=== PATIENT | female | born 1955 | race Caucasian/White ===

== ENCOUNTER 2024-06-23 14:05 | Emergency (ER) | payer MEDICARE, SELFPAY ==
--- NOTE | 2024-06-23 14:07 | ED.SKABFB ---
HPI - Skin/Abscess/Foreign Bdy General Chief complaint: Skin/Abscess/Foreign Body Stated complaint: Rash Time Seen by Provider: 06/23/24 14:18 Source: patient, RN notes reviewed and old records reviewed Mode of arrival: ambulatory Limitations: no limitations History of Present Illness HPI narrative: 69-year-old female presents to [facility] with complaints of a rash to bilateral arms, chest. Had something similar 2 weeks ago after being in the [place]. States that this also. After she was in [place] over the weekend. Had taken Benadryl and hydrocortisone cream Patient describes it is bearing very itchy. No swelling. No lip or tongue swelling. No trouble breathing. Areas are no increased warmth. No signs of cellulitic changes. Related Data Home Medications Medication Instructions Recorded Confirmed simvastatin 40 mg tablet 40 mg PO DAILY 01/05/22 06/23/24 hydrochlorothiazide 12.5 mg capsule 12.5 mg PO DAILY 02/12/23 06/23/24 levothyroxine 25 mcg capsule 25 mcg PO DAILY 02/12/23 06/23/24 magnesium gluconate 27 mg 27 mg PO BID 02/18/24 06/23/24 magnesium (500 mg) tablet (Mag-G) phentermine 37.5 mg capsule 37.5 mg PO DAILY 02/18/24 06/23/24 Allergies Allergy/AdvReac Type Severity Reaction Status Date / Time epinephrine Allergy Mild FLUSHING Verified 02/18/24 09:15 Sulfa (Sulfonamide Allergy Mild HIVES Verified 02/18/24 09:15 Antibiotics) Review of Systems Review of Systems: All systems reviewed & are unremarkable except as noted in HPI and below Constitutional: Constitutional: Reports no additional constitutional complaints Eyes: Eyes: Reports no additional eye complaints ENT: Reports system reviewed and no additional complaints, except as documented Cardiovascular: Cardiovascular: Reports no additional cardiovascular complaints, Denies chest pain and Denies dyspnea Respiratory: Respiratory: Reports no additional respiratory complaints, Denies chest congestion, Denies cough and Denies dyspnea Gastrointestinal: Gastrointestinal: Reports no additional gastrointestinal complaints, Denies abdominal pain, Denies nausea and Denies vomiting Musculoskeletal: Musculoskeletal: Reports no additional musculoskeletal complaints Integumentary/Breasts: Skin/Breast: Reports as per HPI and Reports rash Neurologic: Reports system reviewed and no additional complaints, except as documented Psychiatric: Psychiatric: Reports no additional psychiatric complaints Allergic/Immunologic: Allergic/Immunologic: Reports no additional allergic/immunologic complaints [facility] Past Medical History Medical History Encounter for Papanicolaou smear for cervical cancer screening H/O bone density study (09/20/18) osteopenia High blood cholesterol Hypertension Joint pain Screening mammogram, encounter for Surgical History Surgical History H/O LEEP 11/27/18 benign History of endometrial ablation 02/15/05 hscope d&c, novasure ablation, tubal ligation History of gastrointestinal surgery 04/19/13 transanal tumor [id number] follow up treatment History of hysteroscopy 11/27/18 hscope d&c/polypectomy/LEEP--benign History of tonsillectomy History of tubal ligation 02/15/05 Family History Family History Father Heart disease Hypertension Lymphoma Mother Breast cancer Social History Social History Smoking status: Never smoker Second hand tobacco smoke exposure: No Alcohol intake: current Drinks per week: 5 Substance use: current Substance use type: marijuana Other substance usage details: gummies at night Do You Feel Safe in your Home?: Yes Lack of Transportation: No Lack of Food: Never True Current Housing: I Have Housing Concerned About Future Housing: No Difficulty Paying
[2024-06-23 14:18] VITALS: BP 131/82; PULSE 66; RESP 16; TEMP 36.8; O2SAT 99
== END 2024-06-23 14:44 | disposition home or self-care (01) ==
PROVIDERS: Emergency Provider Nurse Practitioner; PCP Family Medicine
DX: L25.9 Unspecified contact dermatitis, unspecified cause (principal); F12.90 Cannabis use, unspecified, uncomplicated; E78.00 Pure hypercholesterolemia, unspecified; I10 Essential (primary) hypertension
CPT/HCPCS: 99213; G0463

== ENCOUNTER 2025-04-01 14:54 | Emergency (ER) | payer MEDICARE, SELFPAY ==
[2025-04-01 15:20] VITALS: BP 158/80; PULSE 62; RESP 16; TEMP 36.4; O2SAT 100
--- NOTE | 2025-04-01 16:08 | ED_ITS ---
HPI - General Adult General Chief complaint: Allergic Reaction Stated complaint: allergic reaction Source: patient and RN notes reviewed Mode of arrival: ambulatory Limitations: no limitations History of Present Illness HPI narrative: 70-year-old female presents [facility] complaining of dry and irritated lips for last 2 weeks. Patient is unsure what caused her lips to become irritated. Patient states they feel more chapped and red than normal. Patient denies any lip swelling, tongue swelling, throat swelling. Denies any difficulty breathing. Patient also states the tip of her tongue is irritated as well. Patient denies eating anything that might have irritated her lips are mouth her anything too hot. Patient does take a daily antihistamine at night to help her sleep. Patient states she does feel like her eyes and throat feel more dry, and in “scratchy than normal lately. Patient denies change in in detergent, fragrance, any new medications. Patient does not take an ILENE-inhibitor. Related Data Home Medications Medication Instructions Recorded Confirmed Last Taken Type simvastatin 40 mg tablet 40 mg PO DAILY 01/05/22 06/23/24 Unknown History hydrochlorothiazide 12.5 mg capsule 12.5 mg PO DAILY 02/12/23 06/23/24 Unknown History levothyroxine 25 mcg capsule 25 mcg PO DAILY 02/12/23 06/23/24 Unknown History magnesium gluconate 27 mg 27 mg PO BID 02/18/24 06/23/24 Unknown History magnesium (500 mg) tablet (Mag-G) phentermine 37.5 mg capsule 37.5 mg PO DAILY 02/18/24 06/23/24 Unknown History Allergies Allergy/AdvReac Type Severity Reaction Status Date / Time epinephrine Allergy Mild FLUSHING Verified 04/01/25 15:36 Sulfa (Sulfonamide Allergy Mild HIVES Verified 04/01/25 15:36 Antibiotics) Review of Systems Review of Systems: CONSTITUTIONAL: Denies fever, chills, or sweats. EYES: Denies visual changes, redness, or discharge. ENT: Denies rhinorrhea, congestion, sore throat, or otalgia. Positive for dry lips and lip pain. MOUTH: Positive for tongue irritation CARDIOVASCULAR: Denies chest pain, palpitations, or edema. RESPIRATORY: Denies cough or dyspnea. GASTROINTESTINAL: Denies abdominal pain, nausea, vomiting, or diarrhea. GENITOURINARY: Denies dysuria or hematuria. SKIN: Denies rash or itching. MUSCULOSKELETAL: Denies back pain, joint pain, or myalgia. NEUROLOGIC: Denies headache, numbness, or weakness. PSYCHIATRIC: Denies anxiety or depression. All other systems reviewed are negative, except as documented in HPI. [facility] Past Medical History Medical History Encounter for Papanicolaou smear for cervical cancer screening Screening mammogram, encounter for H/O bone density study (09/20/18) osteopenia Joint pain High blood cholesterol Hypertension Surgical History Surgical History History of tonsillectomy History of tubal ligation 02/15/05 History of endometrial ablation 02/15/05 hscope d&c, novasure ablation, tubal ligation H/O LEEP 11/27/18 benign History of hysteroscopy 11/27/18 hscope d&c/polypectomy/LEEP--benign History of gastrointestinal surgery 04/19/13 transanal tumor [id number] follow up treatment Family History Family History Father Heart disease Hypertension Lymphoma Mother Breast cancer Social History Social History Smoking status: Never smoker Second hand tobacco smoke exposure: No Alcohol intake: current Drinks per week: 5 Substance use: current Substance use type: marijuana Other substance usage details: gummies at night Do You Feel Safe in your Home?: Yes Lack of Transportation: No Lack of Food: Never True Current Housing: I Have Housing Concerned About Future Housing: No Difficulty Paying Gas/Electric Bills: No Difficulty Paying for Meds: No Currently Unemployed: No Education: Associate Degree Difficulty w/ Childcare or Family Care: No Living arrangements: other Additional living arrangements comments: spouse Occupation/Education: retired Gender identity (if verbalized by the patient): Female Sexual Orientation (if Verbalized by the Patient): Straight or Heterosexual Comments At the time of my signature, I reviewed and agree with the nursing past medical, surgical, social, and family history. There is no relevant family history pertinent to the patient complaint. Exam Narrative: GENERAL: This is a well-nourished, well-developed adult, in no apparent distress. They are non ill-appearing, nontoxic appearing. HEAD: normocephalic, atraumatic. EYES: Sclera clear/white. Conjunctiva normal. Vision is grossly intact. Extraocular movements intact EARS: External ears normal, auditory canals clear and without drainage, TMs normal without perforation. Hearing grossly intact. NOSE: External nose normal with no obvious nasal discharge, nasal turbinates without redness, no rhinorrhea. THROAT: Mucous membranes moist, posterior pharynx clear, without erythema or swelling. Uvula midline. No exudate. MOUTH: Oropharynx clear without swelling, suspicious lesions, or redness. No tooth decay. Good dentition. No gingivitis. Tongue without swelling or tenderness. Mild erythema to the tip of the patient's tongue. No swelling or tenderness under the tongue. Lips: Mildly erythemic and dry appearing. No swelling or open sores. [place] lip gloss covering the patient's lip making it difficult to assess. NECK: Neck supple, non-tender without lymphadenopathy, masses or thyromegaly. CARDIOVASCULAR: Regular rate and rhythm without murmurs, gallops, or rubs. RESPIRATORY: Clear to auscultation. Breath sounds equal bilaterally. No wheezes, rales, or rhonchi. SKIN: warm, Dry, intact with no suspicious lesions or rash, good texture and turgor. NEURO: awake, alert, and oriented to person, place and time. There were no obvious focal neurologic abnormalities. EXTREMITIES: No joint tenderness, effusion, or edema noted. BACK: Nontender without deformity. Course Course Emergency Course: Portions of this record may have been created with voice recognition software Level of Care: Express Care Visit Vital Signs Vital signs: Vital Signs Temperature 97.6 F 04/01/25 15:20 Pulse Rate 62 04/01/25 15:20 Respiratory Rate 16 04/01/25 15:20 Blood Pressure 158/80 H 04/01/25 15:20 Pulse Oximetry 100 04/01/25 15:20 Temperature 97.6 F 04/01/25 15:20 Pulse Rate 62 04/01/25 15:20 Respiratory Rate 16 04/01/25 15:20 Blood Pressure 158/80 H 04/01/25 15:20 Pulse Oximetry 100 04/01/25 15:20 Reviewed Medical Decision Making MDM Narrative Medical decision making narrative: Patient likely has a mild cheilitis may be related atopic dermatitis or contact dermatitis. Will try Kenalog cream for 1-2 weeks. Advised patient to avoid any spicy, citrus foods, or any other food triggers. It is possible patient may be developing anticholinergic effect from the doxylamine succinate history reports also feeling like her eyes are soap drier operator than normal and that her mucous membranes feel more dry. Patient says he takes it at night to help her sleep almost nightly. Discussed physical exam findings. Advised supportive measures and signs/symptoms to go to the ER. Pt is appropriate for outpt treatment and f/u. Differential Diagnosis Differential Diagnosis: cheilitis, medication reaction, dermatitis Vital Signs Vital Signs: Vital Signs Temperature 97.6 F 04/01/25 15:20 Pulse Rate 62 04/01/25 15:20 Respiratory Rate 16 04/01/25 15:20 Blood Pressure 158/80 H 04/01/25 15:20 Pulse Oximetry 100 04/01/25 15:20 Temperature 97.6 F 04/01/25 15:20 Pulse Rate 62 04/01/25 15:20 Respiratory Rate 16 04/01/25 15:20 Blood Pressure 158/80 H 04/01/25 15:20 Pulse Oximetry 100 04/01/25 15:20 Critical Care Time Critical Care Time Critical Care Time: No Discharge Plan Discharge Clinical Impression: Cheilitis Patient Disposition: Home Condition: Stable Instructions: Contact Dermatitis (ED), Eczema (ED) Additional Instructions: Use the steroid cream as directed to your lips. Use steroid cream for a week, if symptoms persist you may use it for up to 2 weeks. Please follow-up with your primary care provider in 3-5 days. Consider stopping doxylamine succinate as a may be drying out your secretions. You may also use petroleum jelly to help with moisture. Avoid any spicy or citrus food, or other food that may irritate your mouth or lips. He develops any throat, tongue, lip swelling, or any difficulty breathing please go to the ER immediately. Patient Language: [place]i Prescriptions: New triamcinolone acetonide 0.025 % ointment 1 applic topical BID 7 Days Qty: 15 0RF No Action prednisone 20 mg tablet See Rx Instructions .Route .COMPLEX Qty: 9 0RF Rx Instructions: Take 40 mg daily for 3 days, 20 mg daily for 3 days simvastatin 40 mg tablet 40 mg PO DAILY hydrochlorothiazide 12.5 mg capsule 12.5 mg PO DAILY levothyroxine 25 mcg capsule 25 mcg PO DAILY magnesium gluconate [Mag-G] 27 mg magnesium (500 mg) tablet 27 mg PO BID phentermine 37.5 mg capsule 37.5 mg PO DAILY Rx Instructions: must administer 30 minutes before or 1-2 hours after breakfast Follow-up/Referrals: Reny,Fred Mitchell MD [Primary Care Provider] - Time of Disposition: 16:00
== END 2025-04-01 16:02 | disposition home or self-care (01) ==
PROVIDERS: PCP Family Medicine
DX: K13.0 Diseases of lips (principal); F12.90 Cannabis use, unspecified, uncomplicated; I10 Essential (primary) hypertension; E78.00 Pure hypercholesterolemia, unspecified; M85.80 Other specified disorders of bone density and structure, unspecified site
CPT/HCPCS: 99213; G0463